=== PATIENT | female | born 1950 | race Caucasian/White ===

== ENCOUNTER 2017-02-20 12:56 | Emergency (ER) | payer MEDICARE, MEDICAID ==
--- NOTE | 2017-02-20 14:59 | C.PDOC ---
History Of Present Illness 66-year-old female, is brought to the emergency department accompanied by family , with complaints of redness and ecchymosis to the right foot. States patient developed symptoms three days ago, and gradually improved. 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 She is ambulatory at home with cane. She is taking Tylenol at home for pain w/ transient relief. Last dose at 09:00 this morning. Patient denies trauma, numbness/weakness, nausea/vomiting. Time Seen by Provider: 02/20/17 14:16 Chief Complaint (Nursing): Lower Extremity Problem/Injury History Per: Family History/Exam Limitations: no limitations Onset/Duration Of Symptoms: Days Current Symptoms Are (Timing): Better Past Medical History Reviewed: Historical Data, Nursing Documentation, Vital Signs Vital Signs: Last Vital Signs Temp 97.6 F 02/20/17 13:54 Pulse 55 L 02/20/17 15:32 Resp 16 02/20/17 15:32 BP 154/67 H 02/20/17 15:32 Pulse Ox 99 02/20/17 16:14 Family History: States: Unknown Family Hx - Social History Hx Alcohol Use: No Hx Substance Use: No - Immunization History Hx Tetanus Toxoid Vaccination: No Hx Influenza Vaccination: No Hx Pneumococcal Vaccination: No Review Of Systems Except As Marked, All Systems Reviewed And Found Negative. Cardiovascular: Negative for: Chest Pain Gastrointestinal: Negative for: Vomiting Musculoskeletal: Positive for: Foot Pain Physical Exam - Physical Exam Appears: Non-toxic, No Acute Distress Skin: Warm, Dry Head: Atraumatic Nose: Normal Neck: Normal ROM Chest: Symmetrical Respiratory: No Accessory Muscle Use Extremity: Other (RIGHT LOWER EXT: FOOT HAS CHRONIC DEFORMITY W/ SCATTERED ECCHYMOSIS THROUGHOUT; CLEAR FLUID BLISTER TO FIRST DIGIT. NO SWELL, ERYTHEMA. NONTEN) ED Course And Treatment - Laboratory Results Result Diagrams: 02/20/17 15:42 02/20/17 15:42 O2 Sat by Pulse Oximetry: 99 Reevaluation Time: 16:30 Reassessment Condition: Unchanged (EXAM UNCH FROM PRIOR. VSS. LABS WNL. ADVISED FU PODIATRY) Disposition Counseled Patient/Family Regarding: Diagnosis, Need For Followup - Disposition Referrals: YOUR,GERMINATION TESTING MANAGER [Other] Disposition: HOME/ ROUTINE Disposition Time: 16:31 Condition: GOOD Instructions: Foot Contusion (ED) - Clinical Impression Clinical Impression: Superficial bruising of foot - Scribe Statement The provider has reviewed the documentation as recorded by the Scribe Elmo Lewis All medical record entries made by the Bethanyibrosamaria were at my direction and personally dictated by me. I have reviewed the chart and agree that the record accurately reflects my personal performance of the history, physical exam, medical decision making, and the department course for this patient. I have also personally directed, reviewed, and agree with the discharge instructions and disposition.
[2017-02-20 15:50] VITALS: RESP 16
[2017-02-20 15:52] LABS: BASO % 0.6 % (0.0-2.0); EOS # 0.1 K/uL (0.0-0.7); EOS % 2.1 % (0.0-4.0); HEMATOCRIT 40.2 % (34.0-47.0); LYMPH # 1.8 K/uL (1.0-4.3); MEAN CELL VOLUME 86.8 fL (81.0-99.0); MEAN CORPUSCULAR HEMOGLOBIN 27.7 pg (27.0-31.0); MEAN CORPUSCULAR HGB CONC 31.9 g/dL (33.0-37.0); MEAN PLATELET VOLUME 8.5 fL (7.2-11.7); MONO # 0.6 K/uL (0.0-0.8); NRBC % 0.1 % (0.0-2.0); RED CELL DISTRIBUTION WIDTH 15.5 % (11.5-14.5); WHITE BLOOD COUNT 6.2 K/uL (4.8-10.8)
--- NOTE | 2017-02-20 15:55 | RAD ---
PROCEDURE: CHEST RADIOGRAPH, 1 VIEW HISTORY: SOB COMPARISON: None. FINDINGS: LUNGS: Clear. PLEURA: Biapical pleural parenchymal thickening noted. CARDIOVASCULAR: Enlarged heart. OSSEOUS STRUCTURES: The osseous structures demonstrate degenerative changes. Healed proximal fracture. Likely old displaced fracture with overriding components of the right clavicle. VISUALIZED UPPER ABDOMEN: Upper abdomen is suboptimally evaluated. OTHER FINDINGS: None. IMPRESSION: No focal airspace opacity.
[2017-02-20 16:01] LABS: CHLORIDE 105 mmol/L (98-107); POTASSIUM 3.9 mmol/L (3.6-5.2); SODIUM 139 mmol/L (132-148)
--- NOTE | 2017-02-20 16:01 | RAD ---
PROCEDURE: Right Foot Radiographs. HISTORY: trauma COMPARISON: None. FINDINGS: BONES: Diffuse osteopenia noted. Deformity at the right ankle noted. No definite evidence of acute fracture in the distal right tibia and fibula. JOINTS: Deformity of the right ankle joint and proximal right foot joints seen. SOFT TISSUES: Normal. OTHER FINDINGS: None. IMPRESSION: No definite evidence of acute fracture. Severe deformity at the right ankle. Diffuse osteopenia.
[2017-02-20 16:04] LABS: BLOOD UREA NITROGEN 16 mg/dL (7-17); CARBON DIOXIDE 23 mmol/L (22-30); GFR AFRICAN-AMERICAN > 60
[2017-02-20 16:05] LABS: CALCIUM 9.2 mg/dl (8.6-10.4); GLUCOSE,RANDOM 75 mg/dL (65-105)
[2017-02-20 16:09] VITALS: O2SAT 99
[2017-02-20 17:03] VITALS: BP 157/80; PULSE 56; TEMP 97.9
== END 2017-02-20 17:08 | disposition home or self-care (01) ==
LOC: C.ER 12:56
DX: S90.31XA Contusion of right foot, initial encounter (principal); X58.XXXA Exposure to other specified factors, initial encounter